=== PATIENT | male | born 1950 | race Caucasian/White ===

== ENCOUNTER 2017-02-18 10:08 | Emergency (ER) | payer MEDICARE, OTHER ==
[~2017-02-18] VITALS: Ht 185.4 cm; Wt 88.0 kg
[2017-02-18 10:11] VITALS: BP 120/83; PULSE 100; RESP 16; TEMP 98.3; O2SAT 95
[2017-02-18] MEDS ORDERED: NORC5TAB PO (10:28)
--- NOTE | 2017-02-18 10:28 | PD ---
HPI Chief Complaint: Musculoskeletal Complaint Time Seen by Provider: 10:15 Travel History International Travel<30 days: Yes Contact w/Intl Traveler<30days: Yes Traveled to known affect area: No History of Present Illness HPI 66-year-old male here with increased left knee pain times one day. Patient has known meniscal tear and is scheduled for surgery on 02/28/[address] Mcfarland. He recently had x-ray is negative for fracture and MRI which showed meniscal tear. He denies trauma to the knee. He reports he stood up from his chair yesterday which caused increased pain in the knee which was unrelieved by [id number] Tylenol. This prompted his visit here today. He has pain with weightbearing which is slightly relieved with rest. Pain scale 8/10. He denies paresthesia or weakness in the extremity. He denies fever or chills. PFSH Past Surgical History Tonsillectomy: Yes Other Surgery: Yes (hernia repair surgery) Social History Alcohol Use: Yes (occas) Tobacco Use: No Substance Use: No Allergies-Medications (Allergen,Severity, Reaction): Coded Allergies: No Known Allergies (Unverified Adverse Reaction, Unknown, 02/18/17) Reported Meds & Prescriptions Reported Meds & Active Scripts Active Wells (Hydrocodone-Acetaminophen) 5 Mg-325 Mg Tab 1 Tab PO Q6H PRN Review of Systems Except as stated in HPI: all other systems reviewed are Neg General / Constitutional: No: Fever Physical Exam Narrative GENERAL: Well-nourished, well-developed patient. SKIN: Focused skin assessment warm/dry. HEAD: Normocephalic. CARDIOVASCULAR: Regular rate and rhythm without murmurs, gallops, or rubs. RESPIRATORY: Breath sounds equal bilaterally. No accessory muscle use. GASTROINTESTINAL: Abdomen soft, non-tender, nondistended. MUSCULOSKELETAL: No cyanosis, or edema. Attention to the left lower extremity: Large joint effusion left knee. The joint is stable. No warmth or erythema. No calf swelling or tenderness. 2+ pulses in the extremity. Brisk cap refill. Data Data Last Documented VS Vital Signs Date Time Temp Pulse Resp B/P (MAP) Pulse Ox O2 Delivery O2 Flow Rate FiO2 02/18/17 10:11 98.3 100 16 120/83 (95) 95 Orders Orders Dexamethasone Inj (Decadron Inj) (02/18/17 10:30) [facility] Medical Decision Making Medical Screen Exam Complete: Yes Emergency Medical Condition: Yes Differential Diagnosis Meniscal injury, knee sprain, joint effusion Narrative Course 66-year-old male here with increased left knee pain times one day. Patient has known meniscal tear and is scheduled for surgery on 02/28/[address] Mcfarland. He recently had x-ray is negative for fracture and MRI which showed meniscal tear. He denies trauma to the knee. He reports he stood up from his chair yesterday which caused increased pain in the knee which was unrelieved by [id number] Tylenol. This prompted his visit here today. On exam he has a large joint effusion and left knee. The joint is stable. Extremities neurovascularly intact. Patient was instructed by his orthopedic doctor to abstain from NSAIDs and aspirin products 2 weeks prior to surgery. Patient will be given a shot of Decadron and prescribed a short dose of Wells. He was advised to follow up with his orthopedic this week. Diagnosis Primary Impression: Knee pain Qualified Codes: M25.562 - Pain in left knee Referrals: Serafin Mcfarland MD Additional Instructions: Use the Bowen wrap for compression. Ice and elevate a 70. Use crutches for any bleeding. Take the pain medication as needed. Follow-up with orthopedic doctor Dr. Mcfarland. Scripts Hydrocodone-Acetaminophen (Wells) 5 Mg-325 Mg Tab 1 TAB PO Q6H Y for PAIN, #12 TAB 0 Refills Prov: Aubrey Mistry MD 02/18/17 Disposition: 01 DISCHARGE HOME Condition: Stable Rossi Mckeon Feb 18, 2017 10:28
[2017-02-18] MEDS ORDERED: DEXAMETHASONE SOD PHOS 4 MG/ML VIAL IM ONE (10:30)
== END 2017-02-18 10:53 | disposition home or self-care (01) ==
LOC: PHEFT 10:08
DX: M25.562 Pain in left knee (principal)
CPT/HCPCS: 96372; 99284; J1100